=== PATIENT | female | born 1990 | race Caucasian/White ===

== ENCOUNTER 2018-07-15 06:49 | Emergency (ER) | payer SELFPAY ==
[~2018-07-15] VITALS: Ht 170.2 cm; Wt 86.0 kg
[~2018-07-15 06:49] MED LIST: AMOXICILLIN500 M2 PO; KEFLEX500 M1 PO; MOTRIN800 MG PO; NO HOME MEDS; PRENATA8 OR; TRAMADOL HCL50 MG PO; ZPAK PO
[2018-07-15] MEDS ORDERED: PENICILLN VK500 M1 PO (07:29)
[2018-07-15 07:41] VITALS: BP 112/74
== END 2018-07-15 07:53 | disposition home or self-care (01) | DRG 159 ==
LOC: ED 06:49
DX: K03.81 Cracked tooth (principal); J02.9 Acute pharyngitis, unspecified; R09.89 Other specified symptoms and signs involving the circulatory and respiratory systems

== ENCOUNTER 2019-04-15 07:54 | Emergency (ER) | payer SELFPAY ==
[~2019-04-15] VITALS: Ht 170.2 cm; Wt 80.0 kg
[~2019-04-15 07:54] MED LIST changes: +PENICILLN VK500 M1 PO
[2019-04-15 07:58] VITALS: BP 130/83
[2019-04-15 09:11] LABS: HEMOGLOBIN 13.3 g/dl (12.0-16.0); IMMATURE GRANULOCYTES 0.3 % (0.0-5.0); MEAN CORPUSCULAR HGB 32.6 pG CALC (26.0-32.0); MEAN CORPUSCULAR HGB CONC 32.4 g/L CALC (32.0-36.0); NEUT# 6.58 thou/uL (2.00-7.15); RED BLOOD COUNT 4.08 mill/uL (4.20-5.60); RED CELL DISTRI WIDTH 12.8 % (11.5-15.5)
[2019-04-15 09:15] LABS: MEAN CELL VOLUME 100.5 fL CALC (80.0-100.0)
== END 2019-04-15 09:59 | disposition home or self-care (01) | DRG 866 ==
LOC: ED 07:54
PROVIDERS: Family Medicine
DX: B34.9 Viral infection, unspecified (principal)

== ENCOUNTER 2023-01-23 15:48 | Emergency (ER) | payer BC ==
[~2023-01-23] VITALS: Ht 170.2 cm; Wt 75.0 kg
[2023-01-23] MEDS ORDERED: TRIAMCINOLON0.0253 EX (16:35)
[2023-01-23] MEDS ORDERED: MEDDOSEPAK PO (16:35)
[2023-01-23 16:49] VITALS: BP 138/90
== END 2023-01-23 17:15 | disposition home or self-care (01) | DRG 607 ==
LOC: ED 15:48
DX: L25.9 Unspecified contact dermatitis, unspecified cause (principal)

== ENCOUNTER 2023-02-17 15:36 | Emergency (ER) | payer BC ==
[~2023-02-17] VITALS: Ht 170.2 cm; Wt 73.0 kg
[~2023-02-17 15:36] MED LIST changes: +MEDDOSEPAK PO; +TRIAMCINOLON0.0253 EX
[2023-02-17 19:00] VITALS: BP 122/76
== END 2023-02-17 19:00 | disposition home or self-care (01) | DRG 179 ==
LOC: ED 15:36
DX: U07.1 COVID-19 (principal); J02.9 Acute pharyngitis, unspecified